=== PATIENT | female | born 1960 | race Caucasian/White ===

== ENCOUNTER 2017-10-26 04:04 | Emergency (ER) | payer OTHER ==
[2017-10-26] MEDS ORDERED: ALBUTEROL NEB 2.5 MG/3 ML INH STA ×2 (04:10→05:45)
[2017-10-26] MEDS ORDERED: methylPREDNISolone SUCCINATE 125 MG/2 ML VIAL IVP STA (04:10)
[2017-10-26] MEDS ORDERED: SODIUM CHLORIDE 0.9% 1,000 ML IV ONE (04:23)
[2017-10-26 04:32] LABS: BASOPHILS % (AUTO) 0.4 %; EOSINOPHILS % (AUTO) 0.1 %; HGB - HEMOGLOBIN 15.9 g/dL (12.0-16.0); LYMPHOCYTES # (AUTO) 0.9 10^3/uL (1.5-3.5); LYMPHOCYTES % (AUTO) 13.2 %; MEAN CORPUSCULAR HEMOGLOBIN 31.3 pg (27.0-31.0); MEAN PLATELET VOLUME 7.3 fL (7.9-10.8); MONOCYTES # (AUTO) 0.4 10^3/uL (0.0-1.0); MONOCYTES % (AUTO) 5.9 %; NEUTROPHILS # (AUTO) 5.4 10^3/uL (1.5-6.6); NEUTROPHILS % (AUTO) 80.4 %; PLT - PLATELET COUNT 231 10^3/uL (130-450); RED BLOOD COUNT 5.07 10^6/uL (4.20-5.40); RED CELL DISTRIBUTION WIDTH 12.4 % (12.0-15.0); WHITE BLOOD COUNT 6.8 x10^3/uL (4.8-10.8)
[2017-10-26 04:37] LABS: INR 1.2 (0.8-1.2); PT - PROTHROMBIN TIME 13.4 secs (9.9-12.6)
--- NOTE | 2017-10-26 04:43 | ED Physician Documentation ---
PD HPI DYSPNEA - Stated complaint Stated Complaint: SOA - Chief complaint Chief Complaint: Resp - History obtained from History obtained from: Patient - History of Present Illness Timing - onset: How many days ago (1) Timing - onset during: Rest Timing - details: Gradual onset, Still present Inciting event(s): URI, Exposure (ie smoke) Worsened by: Exertion, Coughing Associated symptoms: Cough, Wheezing. No: Fever, Diaphoresis, Bilateral edema, Unilateral edema Similar symptoms before: No diagnosis Recently seen: Not recently seen - Treatment prior to arrival Treatment prior to arrival: Patient is a 57 year old female with unknown past medical history (patient hasn' t been to doctor in years) who is presenting to the emergency department for shortness of breath and not feeling well. patient states that it has been going on for over a week, but substantially worse over the last four days. Patient states that she works at [employer] and a bug has been going around. patient smokes a pack a day. Upon initial evaluation in the emergency department patient was tachypneic with accessory muscle use and hypoxic in the 70s. PD PAST MEDICAL HISTORY - Past Medical History Past Medical History: No - Past Surgical History Past Surgical History: Yes /[employer]: section - Allergies Allergies/Adverse Reactions: Allergies Allergy/AdvReac Type Severity Reaction Status Date / Time erythromycin base Allergy Unknown Verified 10/26/17 04:26 Penicillins Allergy Unknown Verified 10/26/17 04:26 - Social History Does the pt smoke?: Yes Smoking Status: Current every day smoker Does the pt drink ETOH?: No Does the pt have substance abuse?: No - Immunizations Immunizations are current?: No - POLST Patient has POLST: No Results - Vitals Vitals: Vital Signs - 24 hr 10/26/17 10/26/17 10/26/17 04:12 04:26 04:29 Temperature 36.4 C L 36.8 C Heart Rate 131 H 124 H 123 H Respiratory 17 30 H 28 H Rate Blood Pressure 119/54 L 116/60 O2 Saturation 76 L 95 10/26/17 10/26/17 10/26/17 04:42 05:01 05:14 Temperature Heart Rate 118 H 112 H 115 H Respiratory 28 H 32 H 26 H Rate Blood Pressure 117/91 H 109/53 L 112/44 L O2 Saturation 90 L 93 93 10/26/17 10/26/1718 05:46 06:03 06:05 Temperature Heart Rate 118 H 115 H 117 H Respiratory 28 H 26 H 33 H Rate Blood Pressure 98/54 L 124/61 O2 Saturation 98 98 Oxygen O2 Source Oxymask Oxygen Flow Rate 4 - EKG (time done) 0416 Rate: Rate (enter#) (126) Rhythm: Sinus tachycardia QRS: LVH, Poor R wave progression, Low voltage 0602 Rate: Rate (enter#) (105) Rhythm: Sinus tachycardia Seaview: Posterior hemiblock Intervals: Normal MD QRS: Poor R wave progression Ischemia: T wave inversion, Non specific changes Compare to prior EKG: Changed from prior EKG - Labs Labs: Laboratory Tests 10/26/17 10/26/17 10/26/17 04:18 04:18 04:18 WBC 6.8 RBC 5.07 Hgb 15.9 Hct 49.7 H MCV 98.0 MCH 31.3 H MCHC 32.0 RDW 12.4 Plt Count 231 MPV 7.3 L Neut # 5.4 Lymph # 0.9 L Prowers # 0.4 Eos # 0.0 Baso # 0.0 Absolute Nucleated RBC 0.01 Nucleated RBC % 0.1 PT INR APTT Bld Gas Analysis Time Sample Site ABG pH ABG pCO2 ABG pO2 ABG HCO3 ABG Total CO2 ABG O2 Saturation ABG Base Excess Tyson Test O2 Delivery Device O2 Liters/Min Sodium 133 L Potassium 4.4 Chloride 90 L Carbon Dioxide 27 Anion Gap 16.0 H BUN 26 H Creatinine 1.2 H Estimated GFR (MDRD) 46 L Glucose 192 H Lactic Acid Calcium 8.9 Total Bilirubin 0.7 AST < 10 L ALT 199 H Alkaline Phosphatase 75 Troponin I 0.65 H* B-Natriuretic Peptide Total Protein 7.1 Albumin 3.3 Globulin 3.8 Albumin/Globulin Ratio 0.9 L Lipase 11 L Influenza A (Rapid) Influenza B (Rapid) 10/26/17 10/26/17 10/26/17 04:18 04:18 04:18 WBC RBC Hgb Hct MCV MCH MCHC RDW Plt Count MPV Neut # Lymph # Prowers # Eos # Baso # Absolute Nucleated RBC Nucleated RBC % PT 13.4 H INR 1.2 APTT 25.6 Bld Gas Analysis Time Sample Site ABG pH ABG pCO2 ABG pO2 ABG HCO3 ABG Total CO2 ABG O2 Saturation ABG Base Excess Tyson Test O2 Delivery Device O2 Liters/Min Sodium Potassium Chloride Carbon Dioxide Anion Gap BUN Creatinine Estimated GFR (MDRD) Glucose Lactic Acid 6.5 H* Calcium Total Bilirubin AST ALT Alkaline Phosphatase Troponin I B-Natriuretic Peptide Total Protein Albumin Globulin Albumin/Globulin Ratio Lipase Influenza A (Rapid) Negative Influenza B (Rapid) Negative 10/26/17 10/26/17 10/26/17 04:37 05:15 06:02 WBC RBC Hgb Hct MCV MCH MCHC RDW Plt Count MPV Neut # Lymph # Prowers # Eos # Baso # Absolute Nucleated RBC Nucleated RBC % PT INR APTT Bld Gas Analysis Time 0521 Sample Site RIGHT RADIAL ABG pH 7.27 L ABG pCO2 55 H ABG pO2 65 L ABG HCO3 24.6 ABG Total CO2 26.3 ABG O2 Saturation 90 L ABG Base Excess -3.2 L Tyson Test POSITIVE O2 Delivery Device OXYMASK O2 Liters/Min 4.00 Sodium Potassium Chloride Carbon Dioxide Anion Gap BUN Creatinine Estimated GFR (MDRD) Glucose Lactic Acid Calcium Total Bilirubin AST ALT Alkaline Phosphatase Troponin I 0.70 H* B-Natriuretic Peptide 901 H Total Protein Albumin Globulin Albumin/Globulin Ratio Lipase Influenza A (Rapid) Influenza B (Rapid) - Rads (name of study) chest x-ray Radiology: Final report received (large lung volumes, possible edema) ct angio Radiology: Final report received (no pe but there is small pericardial effusion , and coronary calcification) PD MEDICAL DECISION MAKING - ED course Complexity details: reviewed old records, reviewed results, re-evaluated patient , considered differential, d/w patient, d/w method consultant ED course: Patient was immediately seen and examined at bedside. Patient was pale, hypoxic , tachypneic and ill appearing. IV access was gained and labs were drawn. ekg was performed and showed sinus tach. Patient was placed on supplemental oxygen while bronchodilators were ordered. Patient was treated with solumedrol and two albuterol treatments. chest x-ray was ordered. Patient responded well to the bronchodilators and was treated with additional duonebs and terbutaline with increasing improvement. When patient's labs came back her troponin was slightly elevated. it was decided to transfer the patient to an acute care hospital. [facility] was contacted and the case was discussed with Dr. Rivero who requested a PE study and he would accept the patient. PE study was performed and showed no PE. patient was treated with additional duonebs and tylenol for her headache. Arrangements were made for transfer. Departure - Departure Disposition: 02 Transfer Acute Care Hosp Clinical Impression: Severe chronic obstructive pulmonary disease, Myocardial infarction, Lactic acidosis Condition: Critical Forms: Activity restrictions
[2017-10-26] MEDS ORDERED: IPRATROPIUM/ALBUTEROL 3 ML NEB INH STA (04:46)
[2017-10-26] MEDS ORDERED: TERBUTALINE 1 MG/ML VIAL SUBQ ONE ×2 (04:47→05:03)
--- NOTE | 2017-10-26 04:55 | XRAY Preliminary Report ---
Exam: XR CHEST 1 VIEW X-RAY IMPRESSION: 1. Large lung volumes with pulmonary vascular congestion and possible trace pleural effusions. [facility] SITE ID: [id number]
--- NOTE | 2017-10-26 04:55 | XRAY Report ---
EXAM: CHEST RADIOGRAPHY EXAM DATE: 10/26/2017 04:30 AM. CLINICAL HISTORY: Shortness of breath. COMPARISON: None. TECHNIQUE: 1 view. FINDINGS: Lungs/Pleura: Large lung volumes. Pulmonary vascular congestion. No alveolar consolidation. Possible trace pleural effusions. No pneumothorax. Mediastinum: Within exam limitations, heart size is normal to upper normal. Other: None. IMPRESSION: 1. Large lung volumes with pulmonary vascular congestion and possible trace pleural effusions. [facility] Referring Provider Line: [phone] SITE ID: [id number]
[2017-10-26 04:58] LABS: ALBUMIN 3.3 g/dL (3.2-5.5); ALBUMIN/GLOBULIN RATIO 0.9 (1.0-2.2); ALKALINE PHOSPHATASE 75 IU/L (42-121); ALT ALANINE AMINOTRANSFERASE 199 IU/L (10-60); BILIRUBIN,TOTAL 0.7 mg/dL (0.2-1.0); BUN - BLOOD UREA NITROGEN 26 mg/dL (6-20); CALCIUM 8.9 mg/dL (8.5-10.3); CARBON DIOXIDE - CO2 27 mmol/L (21-32); CHLORIDE 90 mmol/L (101-111); CREATININE 1.2 mg/dL (0.4-1.0); GFR - MDRD 46 (>89); GLUCOSE 192 mg/dL (70-100); LIPASE 11 U/L (22-51); SODIUM 133 mmol/L (135-145); TOTAL PROTEIN 7.1 g/dL (6.7-8.2)
[2017-10-26 04:59] LABS: AST ASPARTATE AMINOTRANSFERASE < 10 IU/L (10-42)
[2017-10-26] MEDS ORDERED: ASPIRIN CHEW 81 MG TABLET PO STA (05:07)
[2017-10-26 05:26] LABS: ABG BASE EXCESS -3.2 mmol/L (-2.0-3.0); ABG HCO3 24.6 mmol/L (22.0-26.0); ABG OXYGEN SATURATION 90 % (94-98); ABG PCO2 55 mmHg (34-45); ABG PH 7.27 (7.35-7.45); ABG PO2 65 mmHg (80-100); ABG TCO2 26.3 MMOL/L (21.0-29.0); ALLEN TEST POSITIVE
[2017-10-26] MEDS ORDERED: IOPAMIDOL-300 100 ML VIAL ONE (05:28)
[2017-10-26] MEDS ORDERED: FUROSEMIDE 40 MG/4 ML VIAL IVP STA (05:49)
[2017-10-26] MEDS ORDERED: IOPAMIDOL-300 100 ML VIAL IVP ONE (05:59)
--- NOTE | 2017-10-26 06:17 | CT Report ---
EXAM: CT ANGIOGRAM CHEST EXAM DATE: 10/26/2017 06:00 AM. CLINICAL HISTORY: Shortness of breath. COMPARISON: None. TECHNIQUE: Routine helical imaging was performed through the chest in the pulmonary arterial phase. I V Contrast: ISOVUE 300 80mL. Reconstructions: Coronal 3-D MIP reconstructions.Sagittal and coronal. In accordance with CT protocol optimization, one or more of the following dose reduction techniques w ere utilized for this exam: automated exposure control, adjustment of mA and/or KV based on patient s ize, or use of iterative reconstructive technique. FINDINGS: Pulmonary Arteries: Diagnostic quality: Adequate through the segmental arteries. No evidence for acute or chronic pulmona ry emboli. No evidence of right heart strain. Lungs/Pleura: Motion artifact. Emphysema. There may be slight interstitial edema. Interstitial infilt rates are also possible. No steven alveolar consolidation or pleural effusion seen. No pneumothorax. Mediastinum: Heart size is normal. Coronary artery calcifications. Small pericardial effusion. Normal -sized mediastinal and right hilar lymph nodes. Thoracic Aorta: Moderate atherosclerosis. No aneurysm or dissection. Upper Abdomen: Unremarkable. Other: Osteopenia. IMPRESSION: 1. No pulmonary emboli seen. 2. Emphysema with possible interstitial infiltrates or edema. 3. Mild coronary artery calcifications. 4. Small pericardial effusion. [facility] Referring Provider Line: [phone] SITE ID: [id number]
--- NOTE | 2017-10-26 06:17 | CT Preliminary Report ---
Exam: CT CHEST ANGIO (PE) IMPRESSION: 1. No pulmonary emboli seen. 2. Emphysema with possible interstitial infiltrates or edema. 3. Mild coronary artery calcifications. 4. Small pericardial effusion. [facility] SITE ID: [id number]
[2017-10-26 06:37] LABS: BILIRUBIN,URINE NEGATIVE (NEGATIVE); GLUCOSE, URINE (UA) NEGATIVE (NEGATIVE); KETONES,URINE (UA) NEGATIVE (NEGATIVE); LEUKOCYTE ESTERASE, URINE NEGATIVE (NEGATIVE); NITRITE,URINE NEGATIVE (NEGATIVE); OCCULT BLOOD,URINE SMALL (NEGATIVE); PROTEIN,URINE TRACE mg/dL (NEGATIVE); UROBILINOGEN,URINE 0.2 (NORMAL) E.U./dL (NORMAL)
[2017-10-26 06:40] LABS: CLARITY,URINE CLEAR (CLEAR)
[2017-10-26] MEDS ORDERED: ACETAMINOPHEN 500 MG TABLET PO STA (06:40)
[2017-10-26 06:41] LABS: BACTERIA,URINE Rare /HPF (None Seen); CASTS, URINE 11-25 Hyaline Casts /LPF; SQUAMOUS EPITHELIAL CELL,UR MOD Squamous (<= Few)
[2017-10-26 06:59] VITALS: BP 102/86
== END 2017-10-26 07:23 | disposition short-term general hospital (02) ==
LOC: ED 04:04
DX: F17.200 Nicotine dependence, unspecified, uncomplicated (principal); I21.9 Acute myocardial infarction, unspecified; J44.9 Chronic obstructive pulmonary disease, unspecified; E87.2 Acidosis; I44.5 Left posterior fascicular block; R94.31 Abnormal electrocardiogram [ECG] [EKG]
CPT/HCPCS: 36415; 36600; 71045; 71275; 80053; 81001; 82803; 83605; 83690; 83880; 84484; 85025; 85610; 85730; 87040; 87275; 87276; 93005; 94640; 96361; 96372; 96374; 96375; 99284; A9270; Q9967; 81003; 87086; 99285

== ENCOUNTER 2017-10-26 07:27 | Outpatient (CLI) | payer OTHER | END 2017-10-26 07:28 | disposition short-term general hospital (02) | LOC: EMS 07:27 | PROVIDERS: ATTEND Surgery | DX: R06.02 Shortness of breath (principal); R79.89 Other specified abnormal findings of blood chemistry | CPT/HCPCS: A0425; A0426 ==